=== PATIENT | male | born 1955 | race Caucasian/White ===

== ENCOUNTER 2024-11-08 07:36 | Day surgery (SDC) | payer MEDICARE, BC, SELFPAY ==
[2024-11-08] VITALS (16 sets, daily range): BP systolic 115–157; BP diastolic 74–93; PULSE 55–69; RESP 10–22; TEMP 36.2–36.7; O2SAT 94–99; BMI 29.5
[2024-11-08] MEDS: Lactated Ringers 1,000 ML 80 ML IV (08:23)
--- NOTE | 2024-11-08 09:08 | W.ANESPRE ---
General Info Date of Service Date Performed: 11/08/24 Height: 5 ft 11 in Weight: 96.2 kg Body Mass Index (BMI): 29.5 Surgical Procedure: Operation Date: 11/08/24 09:25 Proposed Procedure Side Surgeon p Micro Laryngoscopy w/Excision of LT Vocal Cord Marty Kellogg MD Meds Allergies and Home Medications Allergies Allergy/AdvReac Type Severity Reaction Status Date / Time Sulfa (Sulfonamide Allergy Mild Hives Verified 11/08/24 08:04 Antibiotics) Home Medication ?Medication ?Instructions ?Recorded calcium 600 mg (as 1 cap PO DAILY 06/04/24 carbonate)-vitamin D3 5 mcg (200 unit) capsule (Calcium 600 + D(3)) etanercept 50 mg/mL (1 mL) 50 mg subcut .TWICE A WEEK 06/04/24 subcutaneous syringe (Enbrel) multivitamin (Daily Multi-Vitamin 1 tab PO DAILY 06/04/24 tablet) valacyclovir 500 mg tablet 500 mg PO DAILY 06/04/24 metoprolol succinate 50 mg 50 mg PO DAILY 07/14/24 tablet,extended release 24 hr Current Visit Medications: Current Medications Generic Name Dose Route Start Last Admin Trade Name Freq PRN Reason Stop Dose Admin Ringer's Solution 1,000 mls @ 80 mls/hr 11/08/24 08:30 11/08/24 08:23 IV 12/08/24 08:29 80 mls/hr INFUSION SANDRA Administration IV Miscellaneous Supplies 1 each 11/08/24 06:00 Iv Access IV 11/08/24 23:59 DIRECTED SANDRA Sodium Chloride 0 ml 11/08/24 06:00 Normal Saline Flush 10 Ml Syr IV 11/08/24 23:59 PRN PRN Sodium Chloride 0 ml 11/08/24 06:00 Normal Saline 10 Ml Vial IJ 11/08/24 23:59 DIRECTED PRN Sterile Water 0 ml 11/08/24 06:00 Water,Injection,Sterile 10 Ml Vial IJ 11/08/24 23:59 DIRECTED PRN PFSH Active Problems Active Problems: Problem Status Onset Code 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 Hoarseness Acute R49.0 Medical History Medical History Screening for prostate cancer Prinzmetal's angina Obesity Psoriasis q 1-2 years Weak urinary stream Degenerative joint disease of cervical spine Right bundle branch block Hypertension Well adult exam Sinusitis, acute Erectile dysfunction Screening for diabetes mellitus Screening for malignant neoplasm of colon Insect bite Change in voice Surgical History Surgical History Hx of tonsillectomy Left only History of adenoidectomy S/P rotator cuff repair H/O colonoscopy Tobacco Smoking/Tobacco Use Status: Never Alcohol Alcohol Intake: current Alcohol intake frequency: a few times a month Substance Use Substance use: Never Substance use type: does not use Vital Signs and Lab Results Vital Signs Most Recent Vital Signs in EMR: Most Recent Vital Signs Temp Pulse Resp BP Pulse Ox 36.7 C 55 L 16 157/91 H 97 11/08/24 08:01 11/08/24 08:01 11/08/24 08:01 11/08/24 08:01 11/08/24 08:01 Lab Results Blood Type / Crossmatch: No Data to Display Complete Blood Count: No Data to Display Complete Metabolic Panel: No Data to Display Liver Function Panel: No Data to Display Coagulation Panel: No Data to Display Cardiac Panel: No Data to Display Arterial Blood Gas: No Data to Display Venous Blood Gas: No Data to Display Pancreas Panel: No Data to Display Thyroid Panel: No Data to Display Infectious Disease: No Data to Display Blood Cultures: No Data to Display Toxicology Panel: No Data to Display Anesthesia Assessment and Plan Anesthesia History Personal History: No History of Anesthesia Complications Family History: No Family History of Anesthesia Complications Exercise Tolerance Exercise Tolerance: Metabolic Equivalents>4 Pertinent Negatives Pertinent Negatives: No Symptoms of GERD, No Major Pulmonary Symptoms or Complaints and No History of CVA/TIA Cardiac & Pulmonary Exam Cardiac Exam: Normal S1/S2 Heart Sounds Pulmonary Exam: Clear Bilateral Breath Sounds Implantable Cardiac Device Does patient have a Pacemaker or an ICD?: No Airway Exam Known Difficult Airway: No Mallampati Class: 2 Mouth Opening: Normal (> 3cm) Thyromental Distance: Greater than 3 cm Neck Range of Motion: Full ROM Neck Circumference: Normal Teeth Condition: Normal Dentition ASA Classification ASA Score: ASA 2 Emergency Case?: No NPO Status NPO Status: NPO Clears >2 hours, Solids >8 hours Anesthesia Plan Resuscitation Status: Full Code Anesthesia Technique: General Anesthesia Airway Planned: Endotracheal Tube Monitors Used: Standard Monitors
--- NOTE | 2024-11-08 09:34 | PDOC.DSDIS_ITS ---
Date of service: 11/08/24 Discharge Plan Disposition Patient Disposition: Home Condition: Good Discharge Details Reason For Visit: Microlaryngoscopy with left vocal cord biopsy Attending Provider: Marty Kellogg Primary Care Provider: Kenyetta Rush Home Meds and New Rx's Prescriptions: No Action metoprolol succinate 50 mg tablet extended release 24 hr 50 mg PO DAILY valacyclovir 500 mg tablet 500 mg PO DAILY Enbrel 50 mg/mL (1 mL) syringe 50 mg subcut .TWICE A WEEK Calcium 600 + D(3) 600 mg-5 mcg (200 unit) capsule 1 cap PO DAILY multivitamin [Daily Multi-Vitamin] Tablet 1 tab PO DAILY Discharge Instructions Additional Instructions: Avoid excessive talking, shouting, or whispering Avoid clearing your throat Keep well-hydrated Ibuprofen or Tylenol for any discomfort Referrals: Marty Kellogg MD [ [facility] STAFF PHYSICIAN] - (1 month, please call for appointment prior to patient's departure)
--- NOTE | 2024-11-08 10:03 | VOCCOR_PTH ---
PATIENT: Shaggy Cloud LOC: [facility] U#:[id number] AGE/SX: 69/M ROOM: RE11/08/[address]: Marty Kellogg MD : 1955 BED: DIS: 11/08/2024 SPEC #: [id number] RECD: 11/08/24 13:14 STATUS: VAIBHAV REQ #: [id number] VINCENT: 11/08/24 10:[address]: Marty Kellogg DEPT: Surgical Specimen RECD BY: Delfina Gerard ENTERED: 11/08/24 13:15 SP TYPE: VOCCOR OTHR DR: Kenyetta Rush Tissues: 1 - VOCAL CORD Procedures: GROSS AND MICRO LEVEL 4 Comments: [id number]
--- NOTE | 2024-11-08 10:15 | W.PM.OP ---
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 This is causing hoarseness. Options were explained to the family regarding further management. He elected to undergo the above procedure. Consent was filled and signed prior to procedure. We discussed at length that this may or may not be curative, and further procedures might be necessary. He expressed understanding. His expressed understanding. H&P had been reviewed. There have been no changes. Findings: Left vocal cord pedunculated 1 x 1 x 1 mm mass located along the medial aspect of the vocal cord, no surrounding hypervascularity, no lesions on the opposing right cord Procedure Description: After obtaining an adequate level of general endotracheal anesthesia the patient was positioned in supine position and prepped and draped in appropriate fashion. A stack of two 4 x 4's were placed on the upper dentition for protection and then a Holinger laryngoscope carefully introduced into the oral cavity and advanced into the larynx to allow visualization of the vocal cords. Examination of the hypopharynx, larynx, and oral cavity were unremarkable save for the lesion as described above. Once the lesion was clearly visualized, the Giancarlo laryngoscope was placed in suspension and the operating microscope with a 400 mm lens was moved into position. Cup forceps were used to grasp the lesion which came away easily from the mid cord, leaving no significant residual. Care was taken not to damage the underlying tissues. No muscle was exposed. Following this, the wound was inspected for relative hemostasis, and the specimen was placed in formalin and sent to pathology. No residual lesion was appreciated. The Holinger laryngoscope was then taken out of suspension, and carefully removed. The dentition was inspected revealing no damage to the dentition. The patient was then awakened and extubated by anesthesia and taken recovery room in stable condition. I was present throughout the entire case. Date of Procedure: 11/08/24
--- NOTE | 2024-11-08 10:20 | W.PM.DSUDISC ---
Date of service: 11/08/24 Discharge Plan Disposition Patient Disposition: Home Condition: Good Discharge Details Reason For Visit: Microlaryngoscopy with left vocal cord biopsy Attending Provider: Marty Kellogg Primary Care Provider: Kenyetta Rush Home Meds and New Rx's Prescriptions: No Action metoprolol succinate 50 mg tablet extended release 24 hr 50 mg PO DAILY valacyclovir 500 mg tablet 500 mg PO DAILY Enbrel 50 mg/mL (1 mL) syringe 50 mg subcut .TWICE A WEEK Calcium 600 + D(3) 600 mg-5 mcg (200 unit) capsule 1 cap PO DAILY multivitamin [Daily Multi-Vitamin] Tablet 1 tab PO DAILY Discharge Instructions Additional Instructions: Avoid excessive talking, shouting, or whispering Avoid clearing your throat Keep well-hydrated Ibuprofen or Tylenol for any discomfort No driving or operating dangerous for 72 hours. Call with any questions or concerns Referrals: Marty Kellogg MD [ [facility] STAFF PHYSICIAN] - (1 month, please call for appointment prior to patient's departure)
--- NOTE | 2024-11-09 07:43 | W.ANESPOSTOP ---
Postoperative Evaluation Date, Time and Location Date Performed: 11/09/24 Time Performed: 07:44 Patient Location: PACU Vital Signs Most Recent Imported Vital Signs: Most Recent Vital Signs Temp Pulse Resp BP Pulse Ox 36.3 C L 60 20 141/93 H 96 11/08/24 11:30 11/08/24 11:30 11/08/24 11:30 11/08/24 11:30 11/08/24 11:30 Pain Score Most Recent Pain Score: Most Recent Pain Score Pain Level 0 11/08/24 10:50 Assessment Mental Status: Awake (Alert & Oriented to Patient Baseline) Airway and Respiratory Function: Patent airway with normal (patient baseline) respiratory exam Cardiovascular Function: Hemodynamically Stable Hydration Status: Adequately Hydrated Nausea & Vomiting: No Nausea or Vomiting Pain: Pt. Denies Any Pain Peripheral Nerve Block: Patient did not receive a nerve block Postoperative Comments:: Seen yesterday and was doing well.
== END 2024-11-08 11:56 | disposition home or self-care (01) ==
PROVIDERS: PCP Nurse Practitioner Family; Visit Provider Otolaryngology
PROC: 0CJS8ZZ Inspection of Larynx, Via Natural or Artificial Opening Endoscopic (ICD-10-PCS; CPT 31575; principal; 2024-11-08 09:15)
DX: J38.3 Other diseases of vocal cords (principal); R49.0 Dysphonia; I45.10 Unspecified right bundle-branch block; I10 Essential (primary) hypertension; J38.1 Polyp of vocal cord and larynx
CPT/HCPCS: 31536; 88305; J1100; J2003; J2405; J2704